=== PATIENT | female | born 1995 | race Two or more races ===

== ENCOUNTER 2018-07-16 16:45 | Emergency (ER) | payer OTHER ==
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
[2018-07-16] MEDS ORDERED: IBUPROFEN 600 MG TAB PO ONE (17:15)
[2018-07-16 18:30] VITALS: BP 125/81
== END 2018-07-16 18:34 | disposition home or self-care (01) ==
LOC: EDUNIT#
DX: S16.1XXA Strain of muscle, fascia and tendon at neck level, initial encounter (principal); S39.012A Strain of muscle, fascia and tendon of lower back, initial encounter; S00.83XA Contusion of other part of head, initial encounter; V49.60XA Unspecified car occupant injured in collision with unspecified motor vehicles in traffic accident, initial encounter; Y92.410 Unspecified street and highway as the place of occurrence of the external cause; Y93.9 Activity, unspecified; Y99.9 Unspecified external cause status